=== PATIENT | male | born 1960 | race Caucasian/White ===

== ENCOUNTER 2019-12-20 06:50 | Day surgery (SDC) | payer OTHER ==
[~2019-12-20] VITALS: Ht 175.3 cm; Wt 144.1 kg
[~2019-12-20 06:50] MED LIST: ASPI81TA87 PO; ATOR40TA28 PO; CITA10TA68 PO; CYAN1TAB44 PO; LOSA1TAB40 PO; METF-960 PO; SODIUM CHLORIDE 0.9% 1,000 ML ONE
[2019-12-20] MEDS ORDERED: SODIUM CHLORIDE 0.9% 1,000 ML IV ONE (07:00)
[2019-12-20 07:35] LABS: GLUCOMETER DEV NAME(LOC) SDS.; GLUCOSE,POINT OF CARE 137 MG/DL (70-110)
[2019-12-20] MEDS ORDERED: OMEP20 PO (07:50)
[2019-12-20] MEDS ORDERED: BUSP10TA23 PO (07:50)
[2019-12-20] MEDS ORDERED: ISOS30TA6 PO (07:50)
[2019-12-20] MEDS ORDERED: GABA-531 PO (07:50)
[2019-12-20] MEDS ORDERED: ALBU8HFA IH (07:50)
[2019-12-20] MEDS ORDERED: MONT10TA21 PO (07:50)
[2019-12-20] MEDS ORDERED: BACL10TA PO (07:50)
[2019-12-20] MEDS ORDERED: GLIM2 PO (07:50)
[2019-12-20] MEDS ORDERED: FentaNYL CITRATE-PF 100 MCG/2 ML VIAL ONE (08:03)
[2019-12-20] MEDS ORDERED: MIDAZOLAM HCL 2 MG/2 ML VIAL ONE (08:03)
[2019-12-20] MEDS ORDERED: MethylPREDNISolone SOD SUCC 125 MG/2 ML VIAL IVP ONE (09:00)
[2019-12-20] MEDS ORDERED: MethylPREDNISolone SOD SUCC 125 MG/2 ML VIAL ONE (09:14)
[2019-12-20] MEDS ORDERED: ALBUTEROL SULFATE 2.5 MG/0.5 ML NEB SOLUTION NEB ONE (17:21)
[2019-12-20] MEDS ORDERED: BENZOCAINE 20% 50 MCG/SPRAY 57 GM ONE (17:21)
[2019-12-20] MEDS ORDERED: LIDOCAINE 2% 30 ML JELLY ONE (17:21)
[2019-12-20] MEDS ORDERED: OXYGEN THERAPY IH SCH (20:00)
== END 2019-12-20 10:50 | disposition home or self-care (01) ==
LOC: SURGERY 06:50
PROVIDERS: ATTEND Internal Medicine Critical Care Medicine
DX: R05 Cough (principal); J47.9 Bronchiectasis, uncomplicated; J34.89 Other specified disorders of nose and nasal sinuses; J98.8 Other specified respiratory disorders; J38.4 Edema of larynx; B37.0 Candidal stomatitis; R19.09 Other intra-abdominal and pelvic swelling, mass and lump; Z79.899 Other long term (current) drug therapy
CPT/HCPCS: 31623; 31624; 71045; 82962; 87070; 87101; 87206; 87220; 88184; 88185; J2250; J2930; J3010; J7030; 87015; 87205